=== PATIENT | male | born 1960 | race Caucasian/White ===

== ENCOUNTER → 2021-09-28 00:27 | Outpatient (CLI) | payer OTHER, SELFPAY ==
--- NOTE | 2021-09-23 11:00 | DI.RAD_ITS ---
Exam(s) XR THUMB RT EXAM: XR THUMB RT CLINICAL HISTORY: RT THUMB PAIN, M79.644, ? FOREIGN BODY. TECHNIQUE: 2D digital imaging was performed. COMPARISON: No exams were available for comparison FINDINGS: No evidence of fracture nor dislocation. No osseous lesions nor erosions. No obvious degenerative c hanges. First carpometacarpal joint appears unremarkable. No radiopaque foreign body. Bone density appears normal. IMPRESSION: DATA REPOSITORY: RADIATION DOSE DELIVERED:
== END ==
PROVIDERS: Visit Provider Nurse Practitioner Family
DX: M79.644 Pain in right finger(s) (principal)
CPT/HCPCS: 73140

== ENCOUNTER → 2021-10-15 00:36 | Outpatient (CLI) | payer OTHER, SELFPAY ==
--- NOTE | 2021-10-15 07:15 | DI.MRI_ITS ---
Exam(s) MR UPPER EXTREMITY RT WO EXAM: MR UPPER EXTREMITY RT WO CLINICAL HISTORY: PAIN,SWELLING R THUMB.FLEXOR TENOSYNOVITIS RT THUMB,M65.9. TECHNIQUE: Multiplanar multisequence MRI was performed. COMPARISON: Priors available for comparison. FINDINGS: BONES: There is no fracture or contusion pattern. There is mild degenerative signal change in the bon es in the hand and wrist. JOINTS: The radiocarpal joint is unremarkable. The carpal joints are unremarkable. TENDONS: Flexors: There does appear to be mild edema in the soft tissues surrounding the flexor tendons in the carpal tunnel. This may represent a synovitis/tenosynovitis. Extensors: Unremarkable. MUSCLES: There is mild edema seen in the pollicis muscles. No focal fluid collection is seen. Myosi tis cannot be excluded. MEDIAN NERVE: Unremarkable on this noncontrast examination. ULNAR NERVE: Unremarkable on this noncontrast examination. SOFT TISSUES: There is a 0.9 x 1.0 cm fluid collection in the soft tissues on the palmar surface of t he hand anteriorly at the level of the 4th MCP joint. It does not appear to arise from the flexor te ndon or the joint. Mild generalized edema in the soft tissues of the hand and wrist. LIGAMENTS: Unremarkable. TRIANGULAR FIBROCARTILAGE: Unremarkable. OTHER: IMPRESSION: 1. No definite evidence to suggest osteomyelitis. 2. Mild generalized soft tissue edema in the hand and wrist. This may represent a cellulitis. Mild edema seen in the polyps is muscles which may represent a myositis. No abscesses were identified. 3. Mild edema surrounding the flexor tendons in the carpal tunnel which may represent a synovitis/ten osynovitis. DATA REPOSITORY:
== END ==
PROVIDERS: PCP Internal Medicine; Visit Provider Student in an Organized Health Care Education/Training Program
DX: M65.841 Other synovitis and tenosynovitis, right hand (principal); R60.0 Localized edema
CPT/HCPCS: 73218